=== PATIENT | male | born 1980 | race Caucasian/White ===

== ENCOUNTER 2020-12-27 18:57 | Emergency (ER) | payer BC, SELFPAY ==
[2020-12-27 19:12] VITALS: BP 134/93; PULSE 90; RESP 16; TEMP 36.2; O2SAT 98
--- NOTE | 2020-12-27 19:19 | ED.EPISTAXIS ---
HPI - Epistaxis General Chief complaint: Unspecified Stated complaint: nose bleed Time Seen by Provider: 12/27/20 19:19 Source: patient and RN notes reviewed Mode of arrival: ambulatory Limitations: no limitations History of Present Illness complaint: epistaxis Location: right nostril Onset (ago): hour(s) (1) Duration: constant Context: history of previous and aspirin use Treatment prior to arrival: nose pinching and ice Related Data Home Medications Medication Instructions Recorded Confirmed aspirin [Adult Aspirin EC Low 81 mg PO DAILY 12/27/20 12/27/20 Strength] famotidine [Pepcid AC] 20 mg PO DAILY 12/27/20 12/27/20 Allergies Allergy/AdvReac Type Severity Reaction Status Date / Time poison guillermo extract Allergy Intermediate Itching Verified 12/27/20 19:29 No Known Allergies Allergy Unverified 01/21/16 19:52 Review of Systems Review of Systems: All systems reviewed & are unremarkable except as noted in HPI and below PMFSH Past Medical History Medical History (Updated 12/27/20 @ 20:31 by Tim Lorenzo MD) Obesity Surgical History Surgical History (Updated 12/27/20 @ 19:29 by Tim Lorenzo MD) History of arthroscopy of both knees Social History Social History (Updated 12/27/20 @ 19:29 by Tim Lorenzo MD) Smoking status: Never smoker Alcohol intake: never Substance use: never Gender identity (if verbalized by the patient): Male Exam Const: General: healthy appearing and no acute distress Nutritional Appearance: well nourished and obese morbidly obese Orientation/consciousness: patient oriented x3 HENMT: Throat: posterior oropharynx abnormal other (blood in back cleared with swallowing water.) Eyes: Conjunctivae: conjunctivae normal Pupils: Equal, round and reactive pupils present EOM: EOMs intact bilaterally Neck: Neck: normal visual inspection Resp: Effort & Inspection: normal respiratory effort Auscultation: clear to auscultation bilaterally Cardio: Rate: regular rate Rhythm: regular rhythm GI: GI Palp: Yes Soft to palpation Auscultation: normal bowel sounds Back/Spine/Pelvis: Cervical Spine: cervical ROM normal Thoracic/Lumbar Spine: thoraco-lumbar ROM normal Skin: General skin exam: normal color Rashes: no rashes Neuro: General: patient oriented x3, moves all extremities, no meningeal signs and no focal motor deficits Speech: normal speech Gait exam (Neuro): Normal gait present Extrem: General: normal to inspection and no clubbing, cyanosis or edema Psych: Appearance: grossly normal and well kempt Mental Status: mental status grossly normal Affect: normal affect Attitude: cooperative Thought content: Yes Normal thought content present Course Vital Signs Vital signs: Vital Signs Temperature 36.2 C L 12/27/20 19:12 Pulse Rate 90 12/27/20 19:12 Respiratory Rate 16 12/27/20 19:12 Blood Pressure 134/93 H 12/27/20 19:12 Pulse Oximetry 98 12/27/20 19:12 Temperature 36.6 C 12/27/20 20:44 Pulse Rate 89 12/27/20 20:44 Respiratory Rate 18 12/27/20 20:44 Blood Pressure 130/88 12/27/20 20:44 Pulse Oximetry 99 12/27/20 20:44 Procedures Epistaxis Control right: Epistaxis Control Date: 12/27/20 Time Out Performed: Yes Direct Inspection: yes and anterior source identified Cautery Used: silver nitrate Patient Tolerated Procedure: well and no complications Epistaxis Control Narrative: Three sober nitrate sticks used to control bleeding. There is no more blood down the back of his throat. He is not dripping out any blood anteriorly. Discharge Plan Discharge Clinical Impression: Epistaxis Patient Disposition: Home, Self-Care Condition: Improved Instructions: Nosebleed (ED) Prescriptions: No Action aspirin [Adult Aspirin EC Low Strength] 81 mg Tablet,Delayed Release (Dr/Ec) 81 mg PO DAILY RF: 0 famotidine [Pepcid AC] 20 mg Tablet 20 mg PO DAILY RF: 0
[2020-12-27 20:04] VITALS: BP 130/80; PULSE 88; RESP 18; O2SAT 98
[2020-12-27] MEDS: SILVER NITRATE (*SP) STICK 2 EACH TOPICAL (20:09)
[2020-12-27 20:44] VITALS: BP 130/88; PULSE 89; RESP 18; TEMP 36.6; O2SAT 99
== END 2020-12-27 20:45 | disposition home or self-care (01) ==
PROVIDERS: Emergency Provider Emergency Medicine; PCP Internal Medicine
DX: R04.0 Epistaxis (principal)
CPT/HCPCS: 30901; 99283

== ENCOUNTER 2023-02-11 21:54 | Emergency (ER) | payer BC, SELFPAY ==
[2023-02-11 21:57] VITALS: BP 161/88; PULSE 88; RESP 20; TEMP 36.7; O2SAT 100
--- NOTE | 2023-02-11 22:31 | ED.EXTPRO ---
HPI - Extremity Problem General Chief complaint: Extremity Problem,Nontraumatic Stated complaint: Sore on Left Leg History of Present Illness HPI Narrative: This is a 42-year-old male with past history of superficial venous thrombosis, status post varicose vein ablation, who presents to the emergency department complaining of redness and swelling of the left thigh for the past 2 days. Patient states 2 days ago he was gardening and noticed some redness, swelling and minimal pain of the left thigh. He does not believe he was bitten by anything or otherwise injured his thigh. The erythema persisted today. He denies associated fevers, chills or other swelling of the left leg. Related Data Allergies Allergy/AdvReac Type Severity Reaction Status Date / Time poison guillermo extract Allergy Intermediate Itching Verified 12/27/20 19:29 No Known Allergies Allergy Unverified 01/21/16 19:52 Review of Systems Review of Systems: CONSTITUTIONAL: Denies fever, chills, or sweats. CARDIOVASCULAR: Denies chest pain, palpitations, or edema. RESPIRATORY: Denies cough or dyspnea. GASTROINTESTINAL: Denies abdominal pain, nausea, vomiting, or diarrhea. GENITOURINARY: Denies dysuria or hematuria. SKIN: Redness and mild pain of the left thigh, denies rash or itching. MUSCULOSKELETAL: Denies back pain, joint pain, or myalgia. NEUROLOGIC: Denies headache, numbness, dizziness, or weakness. PSYCHIATRIC: Denies anxiety or depression. [facility] Past Medical History Medical History (Updated 02/12/23 @ 00:08 by Background Dawesley) Obesity Varicose veins of both lower extremities Surgical History Surgical History History of arthroscopy of both knees Social History Social History Smoking status: Never smoker Alcohol intake: never Substance use: never Gender identity (if verbalized by the patient): Male Exam Narrative: GENERAL: Well-appearing, well-nourished, and in no acute distress. HEAD: Normocephalic, atraumatic. EYES: PERRLA and EOMI. CHEST: Clear to auscultation. No respiratory distress. No wheezes rales or rhonchi HEART: Regular rate and rhythm. No murmur heard. Normal peripheral pulses. ABDOMEN: Soft, nontender, nondistended, normal active bowel sounds. EXTREMITIES: A 20 x 10 cm area of erythema with some induration is noted to the medial aspect of the left thigh long term down the leg. There is no noted masses or fluctuance. Normal range of motion. No edema. SKIN: Warm, dry, no rash. NEURO: No focal deficits. Alert and oriented x3. PSYCH: Normal mood and affect. Course Course Emergency Course: 22:28 - Bedside ultrasound of the left lower extremity performed by me demonstrates superficial venous thrombosis extending approximately 8 cm. Ultrasound of the common femoral vein, deep and superficial femoral veins and popliteal vein is not concerning for DVT. There is no noted cobblestoning or focal consolidations concerning for cellulitis or abscess. There is no prior documentation available for review of the patient's prior treatments. 23:25 - Platelet count within normal limits. Hemoglobin slightly decreased at 13.7. CBC otherwise unremarkable. Chemistries demonstrate mild hypokalemia at 3.3 but is otherwise unremarkable. I suspect superficial thrombophlebitis, without changes concerning for DVT. I suspect this may involve the great saphenous vein. Will treat with Eliquis with recommendation for the patient to follow-up with his primary care provider. I have placed an order for formal ultrasound. Discussed return and emergency precautions including signs/symptoms of phlegmasia cerulea dolens and respiratory distress. The patient voiced understanding and is comfortable with the plan. All questions answered to his satisfaction. Vital Signs Vital signs: Vital Signs Temperature 98.1 F 02/11/23 21:57 Pulse Rate 88 02/11/23 21:
[2023-02-11 23:08] LABS: Basophils Absolute Auto 0.03 K/mm3 (0.00-0.10); Basophils Percent Auto 0.4 % (0.0-1.0); Eosinophils Absolute Auto 0.14 K/mm3 (0.02-0.50); Eosinophils Percent Auto 1.8 % (1.0-6.0); Hematocrit 41.7 % (40.0-54.0); Hemoglobin 13.7 g/dL (14.0-18.0); Immature Granulocyte Absolute 0.03 K/mm3 (0.00-0.00); Immature Granulocyte Percent A 0.4 % (0.0-0.0); Lymphocytes Absolute Auto 2.77 K/mm3 (1.10-4.50); Lymphocytes Percent Auto 35.9 % (18.0-42.0); Mean Corpuscular HGB Conc 32.9 g/dL (32.0-36.0); Mean Corpuscular Volume 88.2 fL (78.0-102.0); Mean Platelet Volume 9.7 fl (8.7-11.0); Monocytes Absolute Auto 1.09 K/mm3 (0.10-0.90); Monocytes Percent Auto 14.1 % (2.0-11.0); Neutrophils Absolute Auto 3.7 K/mm3 (1.7-7.2); Neutrophils Percent Auto 47.4 % (50.0-70.0); Platelet Count Result 281 K/mm3 (150-420); Red Blood Count 4.73 M/mm3 (4.70-6.10); Red Cell Distribution Width 14.3 % (11.6-14.4); White Blood Count 7.7 K/mm3 (4.8-10.8)
[2023-02-11 23:18] LABS: Anion Gap 9 mmol/L (8-16); Blood Urea Nitrogen 9 mg/dL (7-18); Calcium 8.6 mg/dL (8.5-10.1); Carbon Dioxide 28 mmol/L (21-32); Chloride 104 mmol/L (98-108); Estimated CRCL calculation 152 ml/min; Estimated Glomerular Filt Rate > 60; Glucose 110 mg/dL (70-99); Osmolality Calculated 291 mOsm/kg (285-295); Potassium 3.3 mmol/L (3.5-5.1); Sodium 141 mmol/L (136-145)
[2023-02-11] MEDS: APIXABAN 2.5 MG TABLET 10 MG PO (23:24)
[2023-02-11 23:36] VITALS: BP 154/84; PULSE 88; RESP 20; TEMP 36.7; O2SAT 100
== END 2023-02-11 23:43 | disposition home or self-care (01) ==
PROVIDERS: Emergency Provider Preventive Medicine Aerospace Medicine; PCP Internal Medicine
DX: I80.02 Phlebitis and thrombophlebitis of superficial vessels of left lower extremity (principal)
CPT/HCPCS: 36415; 80048; 85025; 99283; A9270

== ENCOUNTER 2023-02-19 11:02 | Outpatient (CLI) | payer BC, SELFPAY ==
--- NOTE | ~2023-02-19 | US_ITS ---
EXAMINATION: US venous doppler [facility] DATE: 02/19/2023 11:28 INDICATION: Unspecified erythematous condition of the left lower limb. Prior right-sided deep venous thrombosis. TECHNIQUE: Grayscale ultrasound images without and with compression and Doppler ultrasound images of the left lower extremity veins were obtained. COMPARISON: None. FINDINGS: The visualized portions of left common femoral vein, profunda (deep) femoral vein, femoral vein, popl iteal vein, peroneal veins, posterior tibial veins, gastrocnemius vein and greater saphenous vein out flow are patent. Subcutaneous varicose vein with noncompressible superficial venous thrombosis within the region of erythema at the medial left thigh which does not extend into the greater saphenous vei n. IMPRESSION: 1. No deep venous thrombosis in the left lower limb. 2. Thrombosis of a superficial varicose vein within the region of erythema at the medial left thigh s uggesting thrombophlebitis. Reviewed, dictated and finalized at location A. IMPRESSION: 1. No deep venous thrombosis in the left lower limb. 2. Thrombosis of a superficial varicose vein within the region of erythema at t he medial left thigh suggesting thrombophlebitis.
== END 2023-02-19 11:03 | disposition home or self-care (01) ==
LOC: CHSIMG 11:03
PROVIDERS: PCP Internal Medicine; Visit Provider Internal Medicine
DX: M79.89 Other specified soft tissue disorders (principal); I82.812 Embolism and thrombosis of superficial veins of left lower extremity
CPT/HCPCS: 93971

== ENCOUNTER 2023-11-16 10:51 | Outpatient (CLI) | payer OTHER, SELFPAY ==
--- NOTE | ~2023-11-16 | XR_ITS ---
Clinical Indication: Cough PA and lateral views of the chest: Comparison: None Findings: The lungs are clear, without evidence of focal consolidation or pleural effusion. Cardiome diastinal silhouette is within normal limits. Bones and soft tissues are unremarkable. Impression: Normal chest. Reviewed, dictated and finalized at location . AGE BOSS Impression: Normal chest.
== END 2023-11-16 10:52 | disposition home or self-care (01) ==
LOC: CHSIMG 10:54
PROVIDERS: PCP Internal Medicine; Visit Provider Internal Medicine
DX: R05.9 Cough, unspecified (principal); R06.2 Wheezing
CPT/HCPCS: 71046

== ENCOUNTER 2025-02-11 16:52 | Outpatient (CLI) | payer OTHER, SELFPAY ==
--- NOTE | ~2025-02-11 | XR_ITS ---
Left wrist Technique: PA, oblique, lateral, and ulnar deviation views were obtained. Clinical History: Injury Findings: No acute fracture or dislocation is seen. Osseous alignment is anatomic. Joint spaces are p reserved. Soft tissues are unremarkable. Impression: Unremarkable left wrist radiographs. Reviewed, dictated and finalized at location . Impression: Unremarkable left wrist radiographs.
--- NOTE | ~2025-02-11 | XR_ITS ---
Left Shoulder Technique: AP and scapular Y views were obtained. Clinical History: Injury Findings: No fracture or dislocation is seen. Osseous alignment is anatomic. The glenohumeral and acr omioclavicular joint spaces are preserved. Soft tissues are unremarkable. Impression: Unremarkable left shoulder radiographs. Reviewed, dictated and finalized at [facility]. Impression: Unremarkable left shoulder radiographs.
--- OUTSIDE RECORDS SUMMARY | 2025-02-11 17:12 | XMS_ITS | Referral Summary ---
Author Organization [address] Address [address] [place] [address] [place] [phone] Care Team Providers Care Sheet Hanger Name Role Phone Tereza Gonsaelz MD Primary Care Provider + [phone] Allergies No known active allergies Medications apixaban (ELIQUIS) 5 mg tablet Take 1 tablet (5 mg total) by mouth 2 (two) times a day Active Active Problems Problem Noted Date Diagnosed Date Phlebitis 03/26/2023 Social History Tobacco Use Types Packs/Day Years Used Date Smoking Tobacco: Never Smokeless Tobacco: Never Tobacco Cessation:Counseling Given: No Personal Safety Answer Date Recorded Getting School Help Needed Not on file 01/05 Sex and Gender Information Value Date Recorded Sex Assigned at Not on file 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 Gender Identity Not on file Sexual Orientation Not on file Last Filed Vital Signs Vital Sign Reading Time Taken Comments Blood Pressure 157/87 06/18/2023 8:59 AM CDT Pulse - - Temperature - - Respiratory Rate - - Oxygen Saturation - - Inhaled Oxygen Concentration - - Weight 181.4 kg (400 lb) 06/18/2023 8:59 AM CDT Height 185.4 cm (6' 1 ) 06/18/2023 8:59 AM CDT Body Mass Index 52.77 06/18/2023 8:59 AM CDT Plan of Treatment Not on file Insurance [facility] [place] [phone] Care Teams Sheet Hanger Relationship Specialty Start Date End Date Tereza Gonsalez MD PCP - General 02/01/19
--- OUTSIDE RECORDS SUMMARY | 2025-02-11 17:12 | XMS_ITS | Clinical Summary ---
Author Organization [address] Address [address] [place] [address] [place] [phone] Care Team Providers Care Roustabout Crew Pusher Name Role Phone Tereza Gonsalez MD Primary Care Provider + [phone] Allergies No known active allergies Medications apixaban (ELIQUIS) 5 mg tablet Take 1 tablet (5 mg total) by mouth 2 (two) times a day Active Active Problems Problem Noted Date Diagnosed Date Phlebitis 03/26/2023 Surgical History Surgery Date Site/Laterality Comments KNEE SURGERY Medical History Medical History Date Comments Obesity Social History Tobacco Use Types Packs/Day Years Used Date Smoking Tobacco: Never Smokeless Tobacco: Never Tobacco Cessation:Counseling Given: No Personal Safety Answer Date Recorded Getting School Help Needed Not on file 01/05 Sex and Gender Information Value Date Recorded Sex Assigned at Not on file 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 Gender Identity Not on file Sexual Orientation Not on file Obstetrics History Last Filed Vital Signs Vital Sign Reading [...] 06/18/2023 8:59 AM CDT Plan of Treatment Health Maintenance Due Date Last Done Comments Depression Screening 1980 Hepatitis C Screening 1980 Varicella Vaccines (1 of 2 - 13+ 2-dose series) 1993 DTaP/Tdap/Td Vaccine (6 - Tdap) 06/09/1995 06/08/1995, 03/31/1986, 12/24/1982, Additional history exists Hepatitis B Screening 1998 Regular Well Visit/Exam 18-64 1998 Covid-19 Vaccine ( season) 2024 09/23/2021, 12/18/2020, 11/20/2020 Influenza Vaccine (#1) 2024 2, 09/03/2020, 07/31/2019, Additional history exists HPV Vaccines Aged Out No longer eligi ble based on patient's age to complete this topic Pneumococcal vaccine <65 Aged Out No longer eligible based on patient's age to complete this topic Insurance [facility] CHOICE PLUS Care Teams Roustabout Crew Pusher Relationship Specialty Start Date End Date Tereza Gonsalez MD PCP - General 02/01/19
== END 2025-02-11 16:53 | disposition home or self-care (01) ==
LOC: CHSIMG 16:55
PROVIDERS: PCP Internal Medicine; Visit Provider Internal Medicine
DX: S49.92XA Unspecified injury of left shoulder and upper arm, initial encounter (principal)
CPT/HCPCS: 73030; 73110

== ENCOUNTER 2025-02-12 15:20 | Outpatient (CLI) | payer OTHER, SELFPAY ==
--- NOTE | ~2025-02-12 | XR_ITS ---
Right Knee Technique: AP, lateral, and sunrise views were obtained. Clinical History: Injury Findings: No fracture or dislocation is seen. Osseous alignment is anatomic. There is mild tricompart mental spurring. Soft tissues are unremarkable. No joint effusion is seen. Impression: Mild tricompartmental degenerative change. Reviewed, dictated and finalized at [facility]. Impression: Mild tricompartmental degenerative change.
--- OUTSIDE RECORDS SUMMARY | 2025-02-12 15:43 | XMS_ITS | Referral Summary ---
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
--- OUTSIDE RECORDS SUMMARY | 2025-02-12 15:43 | XMS_ITS | Clinical Summary ---
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
== END 2025-02-12 15:21 | disposition home or self-care (01) ==
LOC: CHSIMG 15:23
PROVIDERS: PCP Internal Medicine; Visit Provider Internal Medicine
DX: S89.91XA Unspecified injury of right lower leg, initial encounter (principal)
CPT/HCPCS: 73562

== ENCOUNTER 2025-02-20 10:23 | Outpatient (CLI) | payer OTHER, SELFPAY ==
--- NOTE | ~2025-02-20 | MR_ITS ---
MRI of the left shoulder Technique: Axial proton-density fat-sat images, coronal proton density fat-sat and T2 fat-sat images, and sagittal T1-weighted and T2 fat-sat images were acquired. Clinical History: Pain Findings: There is ackp-rs-mnmwifmi AC joint degenerative change, bony productive change about the jennyfer int. Coracoclavicular and coracoacromial ligaments are probably intact. Coracohumeral ligament poorly delineated. There is moderate to severe tendinosis of the supraspinatus and infraspinatus tendons, without partia l or full-thickness tear. There is complete tear of the subscapularis tendon with retraction to the l evel of glenoid. There is associated medial dislocation of the long head biceps tendon from the bicip ital groove. There is prominent fluid and soft tissue edema surrounding the torn subscapularis tendon and along the bicipital groove region. No labral tear evident. Inferior glenohumeral ligament is mildly thickened and increased in signal, but appears intact. There is minimal fluid in the subacromial/subdeltoid bursa. No degenerative change of the glenohumeral manasa nt. No muscle atrophy evident. Impression: Complete tear of the entire subscapularis tendon with retraction. Associated medial dislocation of the long head biceps tendon from the bicipital groove. Fluid and soft tissue edema about the subscapularis tendon and bicipital groove region. Jxbd-zh-naaffuul AC joint degenerative change. Reviewed, dictated and finalized at [facility]. Impression: Complete tear of the entire subscapularis tendon with retraction. Associated medial dislocation of the long head biceps tendon from the bicipital groove. Fluid and soft tissue edema about the subscapularis tendon and bicipital groove region. Ephh-py-mgbhjgbt AC joint degenerative change.
== END 2025-02-20 10:24 | disposition home or self-care (01) ==
PROVIDERS: PCP Internal Medicine; Visit Provider Internal Medicine
DX: M75.121 Complete rotator cuff tear or rupture of right shoulder, not specified as traumatic (principal); S46.812A Strain of other muscles, fascia and tendons at shoulder and upper arm level, left arm, initial encounter; X58.XXXA Exposure to other specified factors, initial encounter; M75.20 Bicipital tendinitis, unspecified shoulder; M19.012 Primary osteoarthritis, left shoulder
CPT/HCPCS: 73221

== ENCOUNTER 2025-02-23 09:38 | Outpatient (RCR) | payer OTHER, SELFPAY ==
--- NOTE | 2025-02-23 10:35 | OPREHPOC ---
Outpatient Therapy Plan of Care This is a Multidisciplinary Plan of Care that may contain components documented by all disciplines (PT, OT, and ST.) PT Problem 1 PT Problem #1 Knowledge Deficit PT Goal 1 Goal / Goal Update Independent and compliant with HEP Target Visit 4 PT Problem 2 PT Problem #2 Pain PT Goal 1 Goal / Goal Update Pt to report no more than 4/10 pain with activity Target Visit 8 PT Problem 3 PT Problem #3 Impaired Gait PT Goal 1 Goal / Goal Update Pt to ambulate with equal step length and weight distribution bilaterally Target Visit 8 PT Problem 4 PT Problem #4 Impaired Functional Mobility PT Goal 1 Goal / Goal Update Pt to be able to rise out of a chair without knee pain. 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 Pt to report 0% disability on LEFS questionnaire. Target Visit 8
--- NOTE | 2025-02-23 10:35 | PTOPEVAL1 ---
Assessment and note entered by Paula Lofton, PT Evaluation Information Assessment Status Evaluation ICD-10 Condition Codes (PT) Pain in right knee M25.561 Onset 02/08/25 Subjective Information Pt reports he was leaving a [email or web address] game on February 08, stepped off a curb and fell. He reports he hurt his R knee and his L shoulder, x-ray for the knee is clear for fracture. He's been waiting to hear back from the doctor about the plan for his shoulder. He notes previous knee surgeries bilaterally to clean out arthritis. 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 Reported Pain Level Pain Score 0: Self Report Assessment PT Clinical Summary Mr. Beard is a 44 yo male who enters the clinic with R knee pain following a fall off a curb. X- ray is cleared for fracture. Pt notes R knee pain that occurs with end ranges of knee flexion and extension as well as with prolonged standing and squatting. He will benefit from skilled PT intervention to reduce pain and improve R knee stability to be able to perform daily functional tasks with less pain. Plan of Care Interventions Electrical Stimulation,Gait Training,Hot Pack/Cold Pack,Manual Therapy,Neuro Re-education,Patient/ Caregiver Education,Therapeutic Activities, Therapeutic Exercise,Self-Care/Home Management PT Services Indicated Yes Treatment Frequency and 2x/week for 8 visits Duration These treatments will address the objective and functional deficits as defined above. The patient will be advanced safely and appropriately in order for the patient to progress towards his/her prior level of function. Additional exercises will be introduced and as well as a comprehensive home exercise program upon discharge, if needed, to ensure carryover of functional gains achieved in the clinic. This treatment plan has been reviewed and agreement upon by the patient.
--- NOTE | 2025-03-11 16:15 | OPREHPOC ---
Outpatient Therapy Plan of Care This is a Multidisciplinary Plan of Care that may contain components documented by all disciplines (PT, OT, and ST.) PT Problem 1 PT Problem #1 Knowledge Deficit PT Goal 1 Goal / Goal Update Independent and compliant with HEP Target Visit 4 Progress Met PT Problem 2 PT Problem #2 Pain PT Goal 1 Goal / Goal Update Pt to report no more than 4/10 pain with activity Target Visit 8 Progress Met PT Problem 3 PT Problem #3 Impaired Gait PT Goal 1 Goal / Goal Update Pt to ambulate with equal step length and weight distribution bilaterally Target Visit 8 Progress Met PT Problem 4 PT Problem #4 Impaired Functional Mobility PT Goal 1 Goal / Goal Update Pt to be able to rise out of a chair without knee pain. 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 - met Pt to report 0% disability on LEFS questionnaire. -not met Target Visit 8 Progress Met
--- NOTE | 2025-03-11 16:15 | PTOPDC ---
Assessment and note entered by Paula Lofton, PT Evaluation Information Assessment Status Discharge ICD-10 Condition Codes (PT) Pain in right knee M25.561 Onset 02/08/25 Subjective Information Ed reports his knee has been feeling great. 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 He has been independent with his HEP. He is scheduled to get a rotator cuff repair on his L shoulder, which was also injured during his fall, however due to limitations on # of PT visits he is unable to participate in prehab before surgery. Reported Pain Level Pain Score 0: Self Report Assessment PT Clinical Summary Mr. Beard has attended 5 total skilled PT visits addressing R knee pain following a fall that also resulted in a L rotator cuff tear. Since starting PT his knee pain has improved significantly and he is now able to drive and get out of a chair without knee pain. He has been independent with his HEP and feels capable of managing his knee pain on his own. He has met or partially met all therapeutic goals and is appropriate to discharge from skilled PT this date. Plan of Care PT Services Indicated No
== END 2025-03-11 20:00 | disposition home or self-care (01) ==
LOC: CHSPT 09:38
PROVIDERS: PCP Internal Medicine; Visit Provider Internal Medicine
DX: M25.561 Pain in right knee (principal)
CPT/HCPCS: 97110; 97112; 97150; 97161; 97530

== ENCOUNTER 2025-02-28 07:14 | Outpatient (CLI) | payer OTHER, SELFPAY ==
--- OUTSIDE RECORDS SUMMARY | 2025-02-28 07:17 | XMS_ITS | Referral Summary ---
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
--- OUTSIDE RECORDS SUMMARY | 2025-02-28 07:17 | XMS_ITS | Encounter Summary ---
Author Organization [facility] Address [address] [place] [address] Care Team Providers Care Manufacturing Assistant Name Role Phone Tereza Gonsalez MD Primary Care Provider [phone] Encounter Details Date Type Department Care Team (Late st Contact Info) Description 02/26/2025 Telephone [facility] Orthopedics and Sports Medicine [address] [facility] [address] [place] [address] Crow Pablo MD [address] [place] [address] [address]ISHNA [address] [facility] [address] [place] [address] Social History Tobacco Use Types Packs/Day Years Used Date Smoking Tobacco: Never Smokeless Tobacco: Never Personal Safety Answer Date Recorded Getting School Help Needed Not on file 01/05 Sex and Gender Information Value Date Recorded Sex Assigned at Not on file 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 MRI result scanned into media Requested images to be pushed from [employer]. Anurag reviewed MRI report. Schedule with Dr. Pablo next week or two. Appt made for next Sunday Pending MRI images documented in this encounter Plan of Treatment Not on file documented as of this encounter Visit Diagnoses Not on filedocumented in this encounter Care Teams Manufacturing Assistant Relationship Specialty Start Date End Date Tereza Gonsalez MD PCP - General 02/01/19 documented as of this encounter
--- OUTSIDE RECORDS SUMMARY | 2025-02-28 07:17 | XMS_ITS | Clinical Summary ---
Author Organization [address] Address [address] [place] [address] [place] [phone] Care Team Providers Care Ore Digger Name Role Phone Tereza Gonsalez MD Primary Care Provider [phone] Allergies No known active allergies Medications apixaban (ELIQUIS) 5 mg tablet Take 1 tablet (5 mg total) by mouth 2 (two) times a day Active Active Problems Problem Noted Date Diagnosed Date Phlebitis 03/26/2023 Encounters Date Type Department Care Team Description 02/26/2025 Telephone [facility] Orthopedics and Sports Medicine [address] [address] Crow Pablo MD from Last 3 Months Surgical History Surgery Date Site/Laterality Comments KNEE [...] on file 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 Gender Identity Male 02/27/2025 6:46 AM CDT Sexual Orientation Straight 02/27/2025 6: 47 AM CDT Obstetrics History Last Filed Vital Signs Vital [...] season) 2024 09/23/2021, 12/18/2020, 11/20/2020 Influenza Vaccine (Season Ended) 2025 08/04/2022, 09/03/2020, 07/31/2019, Additional history exists HPV Vaccines Aged Out No longer eligi ble based on patient's age to complete this topic Pneumococcal vaccine <65 Aged Out No longer eligible based on patient's age to complete this topic Insurance [facility] H[facility]/PPO Address: [facility] [address] [place] [address] [place] [address] [facility]/PPO Address: [place] [address] Care Teams Ore Digger Relationship Specialty Start Date End Date Tereza Gonsalez MD PCP - General 02/01/19
[2025-02-28 07:34] LABS: Basophils Absolute Auto 0.03 K/mm3 (0.00-0.10); Basophils Percent Auto 0.4 % (0.0-1.0); Eosinophils Absolute Auto 0.05 K/mm3 (0.02-0.50); Eosinophils Percent Auto 0.7 % (1.0-6.0); Hematocrit 43.9 % (40.0-54.0); Immature Granulocyte Absolute 0.02 K/mm3 (0.00-0.00); Immature Granulocyte Percent A 0.3 % (0.0-0.0); Lymphocytes Absolute Auto 2.11 K/mm3 (1.10-4.50); Lymphocytes Percent Auto 31.3 % (18.0-42.0); Mean Corpuscular HGB Conc 31.9 g/dL (32-36); Mean Corpuscular Hemoglobin 28.2 pg (27.0-31.0); Mean Corpuscular Volume 88.3 fL (78.0-102.0); Mean Platelet Volume 9.5 fl (8.7-11.0); Monocytes Absolute Auto 0.71 K/mm3 (0.10-0.90); Monocytes Percent Auto 10.5 % (2.0-11.0); Neutrophils Absolute Auto 3.83 K/mm3 (1.70-7.20); Neutrophils Percent Auto 56.8 % (50.0-70.0); Platelet Count Result 301 K/mm3 (150-420); Red Blood Count 4.97 M/mm3 (4.70-6.10); Red Cell Distribution Width 14.7 % (11.6-14.4); White Blood Count 6.8 K/mm3 (4.8-10.8)
[2025-02-28 07:36] LABS: Add Urine Microscopic? NO; Appearance Urine Clear (Clear); Bilirubin Urine Negative (Negative); Blood Urine Trace-intact (Negative); Color Urine Light Yellow (Yellow); Glucose Urine UA Negative (Negative); Ketones Urine Negative (Negative); Leukocyte Esterase Ur Negative (Negative); Nitrate Urine Negative (Negative); Protein Urine Negative (Negative); Specific Grav Ur 1.015 (1.010-1.020); Urobilinogen Urine 0.2 mg/dL (0.2-1.0); pH Urine 6.5 (5.0-8.0)
[2025-02-28 07:42] LABS: Bacteria Urine None Seen /hpf; RBC Urine 0-2 /hpf (0-2); Squamous Epithelial Cell Urine Few /hpf (Few); WBC Urine None seen /hpf (0-3)
[2025-02-28 07:44] LABS: Hemoglobin A1C 5.7 % (<5.7)
[2025-02-28 08:09] LABS: Alanine Aminotransferase 31 U/L (16-63); Albumin Level 3.6 g/dL (3.4-5.0); Alkaline Phosphatase 80 U/L (46-116); Anion Gap 7 mmol/L (4-12); Aspartate Amino Transferase 29 U/L (15-37); Bilirubin,Total 0.4 mg/dL (0.00-1.00); Blood Urea Nitrogen 12 mg/dL (7-18); Carbon Dioxide 30 mmol/L (21-32); Chloride 104 mmol/L (98-108); Cholesterol 181 mg/dL (0-200); Estimated Glomerular Filt Rate > 60; Glucose 98 mg/dL (70-99); HDL Direct 67 mg/dL (40-60); LDL Cholesterol Calculated 97 mg/dL (<130); Osmolality Calculated 291 mOsm/kg (285-295); Potassium 4.5 mmol/L (3.5-5.1); Sodium 141 mmol/L (136-145); Total Protein 7.4 g/dL (6.4-8.2); Triglycerides 86 mg/dL (0-150)
== END 2025-02-28 07:15 | disposition home or self-care (01) ==
LOC: CHSLAB 07:15
PROVIDERS: PCP Internal Medicine; Visit Provider Internal Medicine
DX: Z00.00 Encounter for general adult medical examination without abnormal findings (principal); E78.2 Mixed hyperlipidemia
CPT/HCPCS: 36415; 80053; 80061; 81003; 83036; 85025

== ENCOUNTER 2025-03-31 07:00 | Outpatient (CLI) | payer OTHER, SELFPAY ==
--- OUTSIDE RECORDS SUMMARY | 2025-03-31 07:03 | XMS_ITS | Referral Summary ---
Author Organization [address] Address [address] [place] [address] [address] [place] [address] Care Team Providers Care Wing Scorer Name Role Phone Tereza Gonsalez MD Primary Care Provider [phone] Encounters Date Type Department Care Team Description 03/24/2025 9:00 AM CDT - 03/24/2025 11:10 AM CDT Surgery [facility] Operating Room [address] [place] [address] Crow Pablo MD Not Performed Left shoulder arthroscopy rotator cuff repair, subscapulairs and biceps tenotomy--Arthroscopy equipment, ApolloRf vapor, Breg Sling Shot 2 Sling with abduction pillow, NMES, Spider, Arthrex anchors, beach chair, polar care, open set on hold 03/24/2025 8:54 AM CDT Anesthesia Event [facility] Operating Room [address] [place] [address] Adolfo Royal MD 03/24/2025 6:31 AM CDT - 03/24/2025 11:05 AM CDT Hospital Encounter [facility] Operating Room [address] [place] [address] Crow Pablo MD Discharge Disposition: Discharge to home or self care 03/16/2025 Orders Only [facility] Medical Group Orthopedics and Sports Medicine 4 [facility] [address] [place] [address] Crow Pablo MD Superior glenoid labrum lesion of left shoulder, initial encounter (Primary Dx); Full thickness tear of left subscapularis tendon, initial encounter 03/06/2025 Telephone [facility] Orthopedic and Sports Medicine [address] [place] [phone] Crow Pablo MD Surgery Clearance 03/06/2025 Orders Only [facility] Orthopedic and Sports Medicine [address] [place] [phone] Crow Pablo MD Full thickness tear of left subscapularis tendon, initial encounter (Primary Dx) 03/06/2025 9:00 AM CDT Ancillary Procedure [facility] Imaging at [address] [phone] Acute pain of left shoulder 03/06/2025 9:00 AM CDT Office Visit [facility] Orthopedic and Sports Medicine [address] [place] [phone] Crow Pablo MD Full thickness tear of left subscapularis tendon, initial encounter (Primary Dx); Acute pain of left shoulder; Superior glenoid labrum lesion of left shoulder, initial encounter 02/26/2025 Telephone [facility] Orthopedics and Sports Medicine [address] [facility] [address], [place] [address] Crow Pablo MD 02/20/2025 Ancillary Procedure [facility] Outside Films from Last 3 Months Allergies No known active allergies Medications apixaban (ELIQUIS) 5 mg tablet Take 1 tablet (5 mg total) by mouth 2 (two) times a day Active lisinopril-hyd roCHLOROthiazi de (ZESTORETIC) 10-12.5 mg per tablet Take 1 tablet by mouth daily 5 Active lisinopriL (PRINIVIL,ZEST RIL) 2.5 mg tablet Take 1 tablet (2.5 mg total) by mouth daily 025 Discontin ued(Thera py completed ) ascorbic acid (VITAMIN C) 500 mg tablet,chewabl e Take 1 tablet/chew tab (500 mg total) by mouth 2 (two) times a day 60 tablet/chew tab 5 025 Discontin ued(Stop Taking at Discharge ) cholecalcifero l (VITAMIN D-3) 2000 unit capsule Take 1 capsule (2,000 Units total) by mouth daily 30 capsule 5 025 Discontin ued(Stop Taking at Discharge ) ondansetron (ZOFRAN) 4 mg tabletIndicati ons:Prevention of Post-Operative Nausea and Vomiting Take 1 tablet (4 mg total) by mouth every 6 (six) hours as needed for nausea or vomiting 30 tablet 1 5 025 Discontin ued(Stop Taking at Discharge ) oxyCODONE-acet aminophen (PERCOCET) 5-325 mg per tabletIndicati ons:Pain Take 1 tablet by mouth every 4 (four) hours as needed for pain 30 tablet 5 025 Discontin ued(Stop Taking at Discharge ) senna-docusate (PERICOLACE) 8.6-50 mg Take 1 tablet by mouth 2 (two) times a day as needed for constipation 30 tablet 1 5 025 Discontin ued(Stop Taking at Discharge ) Active Problems Problem Noted Date Diagnosed Date Full thickness tear of left subscapularis tendon 03/12/2025 Superior glenoid labrum lesion of left shoulder 03/12/2025 Phlebitis 03/26/2023 Social History Tobacco Use Types Packs/Day Years Used Date Smoking Tobacco: Never Smokeless Tobacco: Never Tobacco Cessation:Counseling Given: No AUDIT-C Answer Date Recorded Q1: How often do you have a drink containing alc ohol? Monthly or less 03/24/2025 Q2: How many drinks containi ng alcohol do you have on a typical day when you are drinking? 1 or 2 03/24/2025 Q3: How often do you have si x or more drinks on one occasion? Never 03/24/2025 Personal Safety Answer Date Recorded Have you ever been in or are you currently in a harmful physical or emotional relationship or is someone making you feel afraid or unsafe? 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 Gender Identity Male 02/27/2025 6:46 AM CDT Sexual Orientation Straight 02/27/2025 6: 47 AM CDT Last Filed Vital Signs Vital Sign Reading Time Taken Comments Blood Pressure 117/70 03/24/2025 10:45 AM CDT Pulse 80 03/24/2025 10:45 AM CDT Temperature 36.2 C (97.1 F) 03/24/2025 10:45 AM CDT Respiratory Rate 20 03/24/2025 10:4 5 AM CDT Oxygen Saturation 98% 03/24/2025 10: 45 AM CDT Inhaled Oxygen Concentration - - Weight 191.6 kg (422 lb 6.4 oz) 03/24/2025 7:08 AM CDT Height 185.4 cm (6' 1) 03/24/2025 7:08 AM CDT Body Mass Index 55.73 03/24/2025 7:08 AM CDT Plan of Treatment Not on file Procedures Procedure Name Priority Date/Time Associated Diagnosis Comments WI AN ELECTIVE ENDOTRACHEAL AIRWAY Routine 03/24/2025 9:31 AM CDT ANESTHESIA PERIPHERAL BLOCK Routine 03/24/2025 8:02 AM CDT POTASSIUM, WHOLE BLOOD STAT 03/24/2025 7:11 AM CDT PAIN BLOCK Routine 03/24/2025 6:59 AM CDT XR SHOULDER LEFT 2 OR MORE VIEWS Schedule Routine, Read Routine (OP Routine) 03/06/2025 9:05 AM CDT Acute pain of left shoulder MRI TRANSFER OF OUTSIDE FILMS Routine 02/20/2025 12:00 AM CDT from Last 3 Months Results * WI AN ELECTIVE ENDOTRACHEAL AIRWAY (03/24/2025 9:31 AM CDT) Narrative Azeem Faith CRNA - 03/24/2025 9:31 AM CDT Azeem Faith CRNA 03/24/2025 9:32 AM Airway Patient location: OR Urgency: elective Date/time: 03/24/2025 9:04 AM Indications for airway management: anesthesia and airway protection Difficult airway: no Staff: Placed by: DESIGNER/WRITER: Entzeroth, Azeem, DESIGNER/WRITER Emergent airway documentation: Risks and benefits discussed: yes Consent obtained: yes Consent given by: patient Airway prep: Preoxygenated: yes Patient position: sniffing Mask difficulty assessment: 0 - not attempted Spontaneous ventilation during airway: absent Sedation level during airway: GA Final airway details: Final airway type: endotracheal airway Tube type: ETT ETT size: 8.0 mm Cuffed: yes Technique used for successful ETT placement: video laryngoscopy Devices/Methods used in placement: intubating stylet Insertion site: oral Blade type: Lynette Video blade type: Negron Blade size: 4 Cormack-Lehane (video): grade I - full view of glottis Cuff volume: 7 mL Cuff inflated with: air ETT to lips: 22 cm Placement verified by: auscultation Airway secured with: silk tape Number of attempts: 1 Additional comments: Atraumatic intubation. Dentition/lips/oral cavity same as preop us Adolfo Royal MD ANESTHESIA ORDERABLES Final Result * BW IP ANE LDA PERIPHERAL NERVE CATHETER (03/24/2025 8:02 AM CDT) Narrative Astrid Alfaro MD - 03/24/2025 8:02 AM CDT Astrid Alfaro MD 03/24/2025 8:02 AM Peripheral Block Patient location during procedure: block room Start time: 03/24/2025 7:32 AM End time: 03/24/2025 7:45 AM Reason for block: post-op pain management per surgeon request Ultrasound image in chart or stored: yes Block type: catheter continuous infusion Laterality: left Block type: brachial plexus - interscalene Staff: Placed by: Anesthesiologist: Astrid Alfaro MD Procedure prep: Preprocedure checklist: patient identified, procedure contraindications assessed, site marked, procedure consent, surgical consent, IV checked, risks, benefits and alternatives discussed, monitors and equipment checked and timeout performed Patient position: supine and head of bed elevated Procedure performed while patient: sedate with meaningful contact Monitoring: ECG, oximetry, blood pressure and capnography Supplemental O2: nasal cannula Prep solution: chlorhexidine/alcohol PPE: provider hat/mask, sterile gloves, sterile drape and sterile probe cover and gel Skin infiltrated with lidocaine 1%: yes Peripheral nerve block: Technique: ultrasound guided Needle type: insulated Needle gauge: 18 G Needle length: 100 mm Injection assessment: injection made incrementally with constant monitoring, local visualized surrounding nerve on ultrasound, negative aspiration for heme, no paresthesias noted and see flowsheet for medication details Assessment: Block success: full evaluation pending Events: patient tolerated procedure well with no complications Astrid Alfaro MD ANESTHESIA ORDERABLES Fi nal Result * Potassium, whole blood (03/24/2025 7:11 AM CDT) Potassium, bld 3.7 3.3 - 4.9 mmol/L Comment: Interpretive Data This method is not able to assess for hemolysis, which may falsely increase potassium concentrations. If further testing is needed to evaluate this result, consider in-laboratory plasma potassium. Current Interpretive Data was last revised on 2022. Blood 03/24/2025 7:11 AM CDT 03/24/2025 7:12 AM CDT Adolfo Royal MD LAB BLOOD ORDERABLES F inal Result [facility] [address] [facility] Department of Laboratories [place] [id number] * XR Shoulder Left 2 or More Views (03/06/2025 9:05 AM CDT) Anatomical Region Laterality Modality Upper Extremities, Shoulder Left Digi parminder Radiography Narrative 03/06/2025 9:59 AM CDT Three views left shoulder shows no fracture subluxation dislocation type 2 acromion moderate AC joint arthritis no axillary view Crow Pablo MD IMG XR PROCEDURES Final Resu lt * MRI Outside Reference (02/20/2025 12:00 AM CDT) Narrative [facility] - 03/09/2025 8:31 AM CDT This order has been auto-finalized and does not contain a result. us Provider Transcribed Order IMG MRI PROCEDURES Fi nal Result [facility] from Last [address] [place] [address] [facility] [place] [address] [facility] [employer] PL[facility] Care Teams Wing Scorer Relationship Specialty Start Date End Date Tereza Gonsalez MD PCP - General 02/01/19
--- OUTSIDE RECORDS SUMMARY | 2025-03-31 07:03 | XMS_ITS | Clinical Summary ---
Author Organization [address] Address [address] [facility] [address] [place] [address] Care Team Providers Care Auto Adjudication Specialist Name Role Phone Tereza Gonsalez MD Primary Care Provider [phone] Allergies No known active allergies Medications apixaban [...] lesion of left shoulder 03/12/2025 Phlebitis 03/26/2023 Encounters Date Type Department Care Team Description 03/24/2025 9:00 AM CDT - 03/24/2025 11:10 AM CDT Surgery [facility] Operating Room [address] [place] [address] Crow Pablo MD Not Performed Left shoulder arthroscopy rotator cuff repair, subscapulairs and biceps tenotomy--Arthroscopy equipment, ApolloRf vapor, Breg Sling Shot 2 Sling with abduction pillow, NMES, Spider, Arthrex anchors, beach chair, polar care, open set on hold 03/24/2025 8:54 AM CDT Anesthesia Event [facility] Operating Room [address] [place] [address] Adolfo Royal MD 03/24/2025 6:31 AM CDT - 03/24/2025 11:05 AM CDT Hospital Encounter [facility] Operating Room [address] [place] [address] Crow Pablo MD Discharge Disposition: Discharge to home or self care 03/16/2025 Orders Only [facility] Medical Group Orthopedics and Sports Medicine 4 [facility] [address] [place] [address] Crow Pablo MD Superior glenoid labrum lesion of left shoulder, initial encounter (Primary Dx); Full thickness tear of left subscapularis tendon, initial encounter 03/06/2025 9:00 AM CDT Ancillary Procedure [facility] Imaging at [address] [phone] Acute pain of left shoulder 03/06/2025 9:00 AM CDT Office Visit [facility] Orthopedic and Sports Medicine [address] [place] [phone] Crow Pablo MD Full thickness tear of left subscapularis tendon, initial encounter (Primary Dx); Acute pain of left shoulder; Superior glenoid labrum lesion of left shoulder, initial encounter 03/06/2025 Telephone [facility] Orthopedic and Sports Medicine [address] [place] [phone] Crow Pablo MD Surgery Clearance 03/06/2025 Orders Only [facility] Orthopedic and Sports Medicine [address] [place] [phone] Crow Pablo MD Full thickness tear of left subscapularis tendon, initial encounter (Primary Dx) 02/26/2025 Telephone [facility] Orthopedics and Sports Medicine 4 [facility] [address] [place] [phone] Crow Pablo MD 02/20/2025 Ancillary Procedure [facility] Outside Films from Last 3 Months Surgical History Surgery Date Site/Laterality Comments KNEE SURGERY Bilateral arthroscopy Medical History Medical History Date Comments Obesity Hypertension Phlebitis Family History Medical History Relation Name Comments Diabetes Brother Diabetes Mother Relation Name Status Comments Brother Mother Social History Tobacco Use Types Packs/Day Years [...] on file 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 Gender Identity Male 02/27/2025 6:46 AM CDT [...] 03/24/2025 7:08 AM CDT Plan of Treatment Health Maintenance [...] on patient's age to complete this topic Procedures Procedure Name Priority Date/Time Associated Diagnosis Comments ID AN ELECTIVE ENDOTRACHEAL AIRWAY Routine 03/24/2025 9:31 [...] CDT from Last 3 Months Results * ID AN ELECTIVE ENDOTRACHEAL AIRWAY (03/24/2025 9:31 AM CDT) Narrative Azeem Faith CRNA - 03/24/2025 9:31 AM CDT Azeem Faith CRNA 03/24/2025 9:32 AM Airway Patient location: OR Urgency: elective Date/time: 03/24/2025 9:04 AM Indications for airway management: anesthesia and airway protection Difficult airway: no Staff: Placed by: PROJECTION WELDING MACHINE OPERATOR: Azeem Faith CRNA Emergent airway documentation: Risks and benefits discussed: [...] MD LAB BLOOD ORDERABLES F inal Result Performing Organization Address City/[facility]/ZIP Co de Phone Number [facility] ([place]) [address] [facility] Department [place] [address] * XR Shoulder Left 2 or More Views (03/06/2025 9:05 AM CDT) Anatomical Region Laterality Modality Upper Extremities, Shoulder Left Digi parminder Radiography Narrative 03/06/2025 9:59 AM CDT Three views left shoulder shows no fracture subluxation dislocation type 2 acromion moderate AC joint arthritis no axillary view us Crow Pablo MD IMG XR PROCEDURES Final Resu lt * MRI Outside Reference (02/20/2025 12:00 AM CDT) Narrative [facility] - 03/09/2025 8:31 AM CDT This order has been auto-finalized and does not contain a result. us Provider Transcribed Order IMG MRI PROCEDURES Fi nal Result Performing Organization Address [facility] Co de Phone Number [facility] from Last 3 Months Insurance [facility] Address: [facility] [address] [place] [address] [facility] Address: [place] [address] Care Teams Auto Adjudication Specialist Relationship Specialty Start Date End Date Tereza Gonsalez MD PCP - General 02/01/19
[2025-03-31 08:04] LABS: Anion Gap 3 mmol/L (4-12); Blood Urea Nitrogen 17 mg/dL (9-20); Calcium 9.2 mg/dL (8.4-10.2); Carbon Dioxide 28 mmol/L (22-30); Chloride 105 mmol/L (98-107); Estimated Glomerular Filt Rate > 60; Glucose 98 mg/dL (65-110); Osmolality Calculated 283 mOsm/kg (285-295); Potassium 4.3 mmol/L (3.4-5.0); Sodium 136 mmol/L (137-145)
== END 2025-03-31 07:01 | disposition home or self-care (01) ==
LOC: CHSLAB 07:01
PROVIDERS: PCP Internal Medicine; Visit Provider Internal Medicine
DX: I10 Essential (primary) hypertension (principal)
CPT/HCPCS: 36415; 80048

== ENCOUNTER 2025-06-19 15:43 | Outpatient (RCR) | payer OTHER, SELFPAY ==
--- NOTE | 2025-06-19 16:32 | OPREHPOC ---
Outpatient Therapy Plan of Care This is a Multidisciplinary Plan of Care that may contain components documented by all disciplines (PT, OT, and ST.) PT Problem 1 PT Problem #1 Knowledge Deficit PT Goal 1 Goal / Goal Update independent and compliant with HEP Target Visit 7 PT Problem 2 PT Problem #2 Pain PT Goal 1 Goal / Goal Update patient to report no more than 2/10 pain in the L shoulder Target Visit 15 PT Problem 3 PT Problem #3 Impaired Range of Motion PT Goal 1 Goal / Goal Update active L shoulder flex to 150 degrees or better active L shoulder abd to 130 degrees or better active L shoulder ER to the shirt collar active L shoulder IR to the belt line Target Visit 15 PT Problem 4 PT Problem #4 Impaired Strength PT Goal 1 Goal / Goal Update 4-/5 or better L shoulder strength overall 4/5 or better L elbow strength Target Visit 15 PT Problem 5 PT Problem #5 Impaired Functional Mobility PT Goal 1 Goal / Goal Update quick dash to display 20% or less functional deficits 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
--- NOTE | 2025-06-19 16:33 | PTOPEVAL1 ---
Assessment and note entered by JT File, PT Evaluation Information Assessment Status Evaluation ICD-10 Condition Codes (PT) Pain in left shoulder M25.512 Onset 02/08/25 Subjective Information patient reports he tore the L RTC on 02/08/25. he reports he had surgery to repair the tear 4 weeks ago today. he reports he was able to have an arthroscopic repair of the torn tendons. he is still in a sling still at rest. he reports he was told a 1lb restriction. 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 Reported Pain Level Pain Score 0: Self Report Assessment PT Clinical Summary mr. usn is a 44 yo man who presents to skilled PT for rehab following L shoulder RTC repair. he presents today 4 weeks post op and limited in rom and strength of the L shoulder. he is restricted to prom and aarom only of the L shoulder as of this date, with no IR rom at this time. contnued skilled PT is indicated to safely progress patient along his post op rehab and improve his objective /functional deficits to return to his prior level functional activity performance/quality of life. Plan of Care Interventions Electrical Stimulation,Hot Pack/Cold Pack,Manual Therapy,Neuro Re-education,Patient/Caregiver Education,Therapeutic Activities,Therapeutic Exercise PT Services Indicated Yes Treatment Frequency and 2x weekly for 15 visits Duration These treatments will address the objective and functional deficits as defined above. The patient will be advanced safely and appropriately in order for the patient to progress towards his/her prior level of function. Additional exercises will be introduced and as well as a comprehensive home exercise program upon discharge, if needed, ?to ensure carryover of functional gains achieved in the clinic. This treatment plan has been reviewed and agreement upon by the patient.
--- NOTE | 2025-07-30 17:00 | OPREHPOC ---
Outpatient Therapy Plan of Care This is a Multidisciplinary Plan of Care that may contain components documented by all disciplines (PT, OT, and ST.) PT Problem 1 PT Problem #1 Knowledge Deficit PT Goal 1 Goal / Goal Update independent and compliant with HEP Target Visit 7 Progress Met PT Goal 2 Goal / Goal Update continue to progress PT Problem 2 PT Problem #2 Pain PT Goal 1 Goal / Goal Update patient to report no more than 2/10 pain in the L shoulder Target Visit 15 Progress Not Met PT Goal 2 Goal / Goal Update continue PT Problem 3 PT Problem #3 Impaired Range of Motion PT Goal 1 Goal / Goal Update active L shoulder flex to 150 degrees or better active L shoulder abd to 130 degrees or better active L shoulder ER to the shirt collar active L shoulder IR to the belt line Target Visit 15 Progress Not Met PT Goal 2 Goal / Goal Update progress towards, continue all PT Problem 4 PT Problem #4 Impaired Strength PT Goal 1 Goal / Goal Update 4-/5 or better L shoulder strength overall 4/5 or better L elbow strength Target Visit 15 Progress Not Met PT Goal 2 Goal / Goal Update continue PT Problem 5 PT Problem #5 Impaired Functional Mobility PT Goal 1 Goal / Goal Update quick dash to display 20% or less functional deficits 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
--- NOTE | 2025-07-30 17:00 | PTOPEVAL1 ---
Assessment and note entered by Frances Peralta, PT Evaluation Information Assessment Status Progress ICD-10 Condition Codes (PT) Pain in left shoulder M25.512 Onset 02/08/25 Subjective Information Ed reports his right shoulder is doing well. He is not having very much pain and has been performing daily activities with ease. He has not been reaching behind his back and also notes weakness in the right shoulder. He just began strengthening earlier this week. Reported Pain Level Pain Score 1: Self Report Assessment PT Clinical Summary Calvin Beard is now 10 weeks s/p L shoulder rotator cuff repair. He is reporting minimal pain in the left shoulder and has been doing well with daily activities. He demonstrates improved left shoulder active and passive ROM. He continues to have deficits with active left shoulder abduction and ER as well as strength deficits in the left shoulder. He just began strengthening earlier this week. He is progressing towards goals well and will continue to benefit from skilled PT to further address strength and remaining ROM deficits. He will see his surgeon again on . Plan of Care Interventions Electrical Stimulation,Hot Pack/Cold Pack,Manual Therapy,Neuro Re-education,Patient/Caregiver Education,Therapeutic Activities,Therapeutic Exercise PT Services Indicated Yes Treatment Frequency and Continue POC for 3 additional visits for 15 total Duration These treatments will address the objective and functional deficits as defined above. The patient will be advanced safely and appropriately in order for the patient to progress towards his/her prior level of function. Additional exercises will be introduced and as well as a comprehensive home exercise program upon discharge, if needed, ?to ensure carryover of functional gains achieved in the clinic. This treatment plan has been reviewed and agreement upon by the patient.
--- NOTE | 2025-08-11 16:57 | OPREHPOC ---
Outpatient Therapy Plan of Care This is a Multidisciplinary Plan of Care that may contain components documented by all disciplines (PT, OT, and ST.) PT Problem 1 PT Problem #1 Knowledge Deficit PT Goal 1 Goal / Goal Update independent and compliant with HEP Target Visit 7 Progress Met PT Goal 2 Goal / Goal Update continue to progress PT Problem 2 PT Problem #2 Pain PT Goal 1 Goal / Goal Update patient to report no more than 2/10 pain in the L shoulder Target Visit 15 Progress Not Met PT Goal 2 Goal / Goal Update continue Progress Met PT Problem 3 PT Problem #3 Impaired Range of Motion PT Goal 1 Goal / Goal Update active L shoulder flex to 150 degrees or better active L shoulder abd to 130 degrees or better active L shoulder ER to the shirt collar active L shoulder IR to the belt line Target Visit 15 Progress Not Met PT Goal 2 Goal / Goal Update progress towards, continue all Progress Met PT Problem 4 PT Problem #4 Impaired Strength PT Goal 1 Goal / Goal Update 4-/5 or better L shoulder strength overall 4/5 or better L elbow strength Target Visit 15 Progress Not Met PT Goal 2 Goal / Goal Update continue Progress Met PT Problem 5 PT Problem #5 Impaired Functional Mobility PT Goal 1 Goal / Goal Update quick dash to display 20% or less functional deficits -not met 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
--- NOTE | 2025-08-11 16:57 | PTOPPROG ---
Assessment and note entered by Frances Peralta, PT Evaluation Information Assessment Status Progress ICD-10 Condition Codes (PT) Pain in left shoulder M25.512 Onset 02/08/25 Subjective Information Ed reports his right shoulder is doing well. He is not having very much pain and has been performing daily activities with ease. He continues to avoid reaching behind his back and avoids lifting heavier. He feels his strength is about 50% of normal. He has been able to lift a full grocery bag but nothing heavier. 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 Assessment PT Clinical Summary Calvin Beard is now 11.5 weeks s/p L shoulder rotator cuff repair. He is reporting minimal pain in the left shoulder and has been doing well with daily activities. He demonstrates improved left shoulder active and passive ROM. He continues to have deficits with active left shoulder ER as well as strength deficits in the left shoulder. He has been performing strengthening exercises for 2 weeks now. 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 He will see his surgeon again on 08/17/25. Plan of Care Interventions Electrical Stimulation,Hot Pack/Cold Pack,Manual Therapy,Neuro Re-education,Patient/Caregiver Education,Therapeutic Activities,Therapeutic Exercise PT Services Indicated Yes Treatment Frequency and PT on hold until MD follow up on 08/17/25, Duration discharge if no additional orders received. These treatments will address the objective and functional deficits as defined above. The patient will be advanced safely and appropriately in order for the patient to progress towards his/her prior level of function. Additional exercises will be introduced and as well as a comprehensive home exercise program upon discharge, if needed, ?to ensure carryover of functional gains achieved in the clinic. This treatment plan has been reviewed and agreement upon by the patient.
== END 2025-09-17 23:59 | disposition home or self-care (01) ==
LOC: CHSPT 15:43
DX: M25.512 Pain in left shoulder (principal); Z98.890 Other specified postprocedural states
CPT/HCPCS: 97014; 97110; 97112; 97140; 97150; 97161; 97530; G0283